=== PATIENT | male | born 1980 | race Caucasian/White ===

== ENCOUNTER 2022-10-25 16:13 | Emergency (ER) | payer OTHER ==
[~2022-10-25] VITALS: Ht 175.3 cm; Wt 113.4 kg
[2022-10-25] VITALS (12 sets, daily range): BP systolic 115–132; BP diastolic 74–88
[2022-10-25] MEDS ORDERED: NAPROXEN500 MG PO (18:21)
[2022-10-25] MEDS ORDERED: HYDROCO/APAP1 TA9 PO (18:21)
== END 2022-10-25 19:16 | disposition home or self-care (01) | DRG 563 ==
LOC: ED 16:13
PROC: 0RSMXZZ Reposition Left Elbow Joint, External Approach (ICD-10-PCS; principal; 2022-10-25)
DX: S52.122A Displaced fracture of head of left radius, initial encounter for closed fracture (principal); W11.XXXA Fall on and from ladder, initial encounter; Y92.89 Other specified places as the place of occurrence of the external cause; Y99.0 Civilian activity done for income or pay